=== PATIENT | female | born 2000 | race Caucasian/White ===

== ENCOUNTER 2025-01-13 05:02 | Day surgery (SDC) | payer OTHER ==
[~2025-01-13] VITALS: Ht 162.6 cm; Wt 114.8 kg
[2025-01-13] VITALS (223 sets, daily range): BP systolic 78–187; BP diastolic 38–115
[~2025-01-13 05:02] MED LIST: SODIUM CHLORIDE 0.9% 1,000 ML IV PRN
[2025-01-13] MEDS ORDERED: SCOPOLAMINE 1.5 MG DIS TD PRN (07:30)
[2025-01-13] MEDS ORDERED: FAMOTIDINE 20 MG/TAB PO PRN (07:30)
[2025-01-13] MEDS ORDERED: ALBUTEROL SULFATE 2.5 MG VIAL IN PRN (07:30)
[2025-01-13] MEDS ORDERED: CYANOCOBALAMIN 500 MCG/TAB ( B12) PO PRN (07:30)
[2025-01-13] MEDS ORDERED: LACTATED RINGER'S 1,000 ML IV PRN ×2 (07:30→11:10)
[2025-01-13] MEDS ORDERED: PANTOPRAZOLE SODIUM Sesquihydr 40 MG/TAB PO PRN (07:30)
[2025-01-13] MEDS ORDERED: cloNIDine HCL 0.1 MG/TAB PO PRN (07:30)
[2025-01-13] MEDS ORDERED: diazePAM 5 MG/TAB PO PRN ×2 (07:30→08:30)
[2025-01-13] MEDS ORDERED: DEXMEDETOMIDINE HCL IN SODIUM 100 ML IV SCH (07:40)
[2025-01-13] MEDS ORDERED: PHENYLEPHRINE HCL 10 MG in DEXTROSE 5% 250 ML IV SCH (07:50)
[2025-01-13] MEDS ORDERED: ASCORBIC ACID 4,000 MG in SODIUM CHLORIDE 0.9% 1,000 ML IV SCH (08:00)
[2025-01-13] MEDS ORDERED: NALTREXONE HCL 50 MG/TAB VT PRN (11:10)
[2025-01-13] MEDS ORDERED: THIAMINE HCL 100 MG/ML 2ML VIAL IV PRN (11:10)
[2025-01-13] MEDS ORDERED: MAGNESIUM SULFATE HEPTAHYDRATE 100 ML IV PRN (11:10)
[2025-01-13] MEDS ORDERED: cloNIDine HCL 0.1 MG/TAB VT PRN (11:10)
[2025-01-13] MEDS ORDERED: SODIUM CHLORIDE 0.9% 1,000 ML IV PRN ×2 (11:10→13:55)
[2025-01-13] MEDS ORDERED: cloNIDine HYDROCHLORIDE 100 MCG/ML 10 ML INJ IV PRN (11:10)
[2025-01-13] MEDS ORDERED: LIDOCAINE HCL 1% (10MG/ML) 100 MG/10 ML MDV IV PRN (11:10)
[2025-01-13] MEDS ORDERED: PROPOFOL 100 ML IV PRN (11:10)
[2025-01-13] MEDS ORDERED: SUCCINYLCHOLINE CHLORIDE 20 MG/ML 10ML VIAL IV PRN (11:10)
[2025-01-13] MEDS ORDERED: LIDOCAINE HCL 1% (10MG/ML) 100 MG/10 ML MDV VT PRN ×2 (11:10)
[2025-01-13] MEDS ORDERED: MIDAZOLAM HCL 2 MG/2 ML VIAL IV PRN ×3 (11:10→13:55)
[2025-01-13] MEDS ORDERED: ONDANSETRON HCl 4 MG/2 ML SDV IV PRN ×3 (11:10→19:00)
[2025-01-13] MEDS ORDERED: diazePAM 5 MG/TAB VT PRN (11:10)
[2025-01-13] MEDS ORDERED: DiphenhydrAMINE HCL 50 MG/ML SDV IV PRN (11:10)
[2025-01-13] MEDS ORDERED: PROPOFOL 10 MG/ML 100ML VIAL IV PRN (11:10)
[2025-01-13] MEDS ORDERED: ROCURONIUM BROMIDE 10 MG/ML 5 ML VIAL IV PRN (11:10)
[2025-01-13] MEDS ORDERED: STERILE WATER FOR IRRIGATION 1,000 ML BTL IR PRN (11:10)
[2025-01-13] MEDS ORDERED: OCTREOTIDE ACETATE 100 MCG/VIAL SDV SC PRN (11:10)
[2025-01-13 13:37] LABS: BASO% 0.3 % (0-3); EOS% 2.3 % (0-8); HEMATOCRIT 33.3 % (37.0-47.0); HEMOGLOBIN 11.1 g/dl (12.0-16.0); IMMATURE GRANULOCYTES 0.1 % (0.0-5.0); LYMPH% 20.6 % (15-41); MEAN CELL VOLUME 85.4 fL CALC (80.0-100.0); MEAN CORPUSCULAR HGB 28.5 pG CALC (26.0-32.0); MEAN CORPUSCULAR HGB CONC 33.3 g/dL CAL (32.0-36.0); MONO% 7.6 % (2-13); NEUT# 5.02 thou/uL (2.00-7.15); NEUT% 69.1 % (42-76); RED BLOOD COUNT 3.9 mill/uL (4.20-5.60)
[2025-01-13 14:04] LABS: BILIRUBIN, TOTAL 0.6 mg/dL (0.02-1.3); CREATININE 0.6 mg/dL (0.5-1.0); POTASSIUM 3.7 mmol/l (3.5-5.1); TOTAL PROTEIN 5.7 g/dL (6.3-8.2)
[2025-01-13] MEDS ORDERED: POTASSIUM CHLORIDE 20 MEQ/100 ML BAG IV PRN (14:50)
[2025-01-13] MEDS ORDERED: hydrALAZINE HCL 20 MG/ML VIAL(1 ML) IV SCH (15:45)
[2025-01-13] MEDS ORDERED: NALTREXONE50 MG PO (16:27)
[2025-01-13] MEDS ORDERED: CLONIDINE0.1 MG PO (16:27)
[2025-01-13] MEDS ORDERED: KLONOPIN2 MG PO (16:28)
[2025-01-13] MEDS ORDERED: PROMETHAZINE HCL 25 MG in SODIUM CHLORIDE 0.9% 50 ML IV PRN (19:00)
[2025-01-13] MEDS ORDERED: KETOROLAC TROMETHAMINE 30 MG/ML SDV IV PRN (19:00)
[2025-01-13] MEDS ORDERED: HALOPERIDOL LACTATE 5 MG/ML SDV IV PRN (19:00)
[2025-01-13] MEDS ORDERED: PROMETHAZINE HCL 12.5 MG in SODIUM CHLORIDE 0.9% 50 ML IV PRN (19:00)
[2025-01-13] MEDS ORDERED: ACETAMINOPHEN 1,000 MG/100 ML VIAL IV PRN (19:00)
[2025-01-13] MEDS ORDERED: ACETAMINOPHEN 500 MG TAB PO PRN (19:00)
[2025-01-13] MEDS ORDERED: PATIENT' OWN MED CONTROLLED 1 EA DOSE IV PRN (21:00)
[2025-01-13] MEDS ORDERED: cloNIDine HCL 0.1 MG/TAB PO SCH (23:00)
[2025-01-13] MEDS ORDERED: clonazePAM 1 MG/TAB PO PRN (23:00)
[2025-01-14 02:56] VITALS: BP 115/65
[2025-01-14] MEDS ORDERED: cloNIDine HCL 0.1 MG/TAB PO PRN (04:00)
[2025-01-14] MEDS ORDERED: clonazePAM 1 MG/TAB PO PRN ×2 (04:00→08:00)
[2025-01-14] MEDS ORDERED: NALTREXONE HCL 50 MG/TAB PO SCH ×2 (04:00→08:15)
[2025-01-14 05:51] LABS: BASO% 0.1 % (0-3); HEMOGLOBIN 12.8 g/dl (12.0-16.0); IMMATURE GRANULOCYTES 0.3 % (0.0-5.0); LYMPH% 6.5 % (15-41); MEAN CELL VOLUME 85.6 fL CALC (80.0-100.0); MEAN CORPUSCULAR HGB 28.8 pG CALC (26.0-32.0); MEAN CORPUSCULAR HGB CONC 33.7 g/dL CAL (32.0-36.0); MONO% 2.1 % (2-13); NEUT# 9.93 thou/uL (2.00-7.15); RED BLOOD COUNT 4.44 mill/uL (4.20-5.60); RED CELL DISTRI WIDTH 14.2 % (11.5-15.5)
[2025-01-14 05:55] LABS: BILIRUBIN, TOTAL 0.6 mg/dL (0.02-1.3); CREATININE 0.6 mg/dL (0.5-1.0); POTASSIUM 3.6 mmol/l (3.5-5.1); TOTAL PROTEIN 6.8 g/dL (6.3-8.2)
[2025-01-14 05:59] LABS: ALBUMIN 3.9 g/dL (3.2-5.0)
[2025-01-14 06:51] VITALS: BP 128/67
[2025-01-14 07:53] VITALS: BP 128/67
[2025-01-14] MEDS ORDERED: cloNIDine HCL 0.1 MG/TAB PO SCH (08:00)
[2025-01-14] MEDS ORDERED: PANTOPRAZOLE SODIUM Sesquihydr 40 MG/TAB PO SCH (08:00)
[2025-01-14] MEDS ORDERED: ACETAMINOPHEN 325 MG/TAB PO SCH (08:00)
[2025-01-14] MEDS ORDERED: POTASSIUM CHLORIDE 20 MEQ/TAB PO SCH (08:15)
[2025-01-14] MEDS ORDERED: Cholecalciferol 2,000 UNIT/TAB PO PRN (09:00)
[2025-01-14] MEDS ORDERED: ACETAMINOPHEN 500 MG TAB PO PRN (09:00)
[2025-01-14] MEDS ORDERED: MAGNESIUM OXIDE 400 MG/TAB PO PRN (09:00)
== END 2025-01-14 14:44 | disposition home or self-care (01) | DRG 897 ==
LOC: ANR 05:02 → MS2 05:02 → ANR 07:00 → MS2 18:17 → ANR 01-14 14:44
PROVIDERS: ATTEND Anesthesiology Critical Care Medicine
DX: F11.20 Opioid dependence, uncomplicated (principal)
CPT/HCPCS: J0360; J1100; J1200; J2354; J2405; J2704; J3411; J3475; J3480; J3490